=== PATIENT | female | born 1975 | race Caucasian/White ===

== ENCOUNTER 2017-03-22 15:33 | Emergency (ER) | payer SELFPAY ==
[~2017-03-22] VITALS: Ht 165.1 cm; Wt 78.0 kg
[2017-03-22] MEDS ORDERED: LORazepam 2 MG/ML, 1ML ONE ×2 (16:21→18:35)
[2017-03-22] MEDS ORDERED: LORazepam 2 MG/ML, 1ML IVPush ONE ×2 (16:30→19:00)
[2017-03-22] MEDS ORDERED: SODIUM CHLORIDE 0.9% 1,000ML IVBOLUS ONE (16:30)
[2017-03-22] MEDS ORDERED: SODIUM CHLORIDE FLUSH 10ML SYR IVF ONE (16:30)
[2017-03-22 16:55] LABS: BLOOD UREA NITROGEN 2 mg/dL (7-18)
[2017-03-22 17:00] LABS: IS PT STATUS REG ER OR PRE ER? YES
[2017-03-22] MEDS ORDERED: OMNIPAQUE 350 MG/ML, 100ML BOTTLE ONE (17:38)
[2017-03-22 20:11] VITALS: BP 102/72
== END 2017-03-22 21:01 | disposition home or self-care (01) ==
LOC: ED 20:53
DX: R20.2 Paresthesia of skin (principal); F41.1 Generalized anxiety disorder; K21.9 Gastro-esophageal reflux disease without esophagitis; Z88.0 Allergy status to penicillin; F17.210 Nicotine dependence, cigarettes, uncomplicated
CPT/HCPCS: 36415; 71275; 76700; 80048; 82040; 83690; 84484; 85025; 93005; 96361; 96374; 96376; 99285; J2060; J7030; Q9967

== ENCOUNTER 2017-07-29 09:39 | Emergency (ER) | payer SELFPAY ==
[~2017-07-29] VITALS: Ht 167.6 cm; Wt 74.5 kg
[2017-07-29] MEDS ORDERED: SODIUM CHLORIDE 0.9% 1,000ML IVBOLUS ONE ×2 (10:30→13:00)
[2017-07-29] MEDS ORDERED: SODIUM CHLORIDE FLUSH 10ML SYR IVF ONE (10:30)
[2017-07-29 10:33] LABS: HEMOGLOBIN 16.7 g/dL (11.7-16.4); WHITE BLOOD COUNT 5.9 x10^3/uL (3.4-10)
[2017-07-29 11:40] LABS: ASPARTATE AMINO TRANSFERASE 199 U/L (15-37); BLOOD UREA NITROGEN 2 mg/dL (7-18)
[2017-07-29] MEDS ORDERED: CLINDAMYCIN 150 MG CAPSULE PO ONE (13:00)
[2017-07-29 13:34] VITALS: BP 120/86
== END 2017-07-29 14:10 | disposition home or self-care (01) ==
LOC: ED 12:22
DX: K02.9 Dental caries, unspecified (principal); K70.10 Alcoholic hepatitis without ascites; R00.0 Tachycardia, unspecified; F17.200 Nicotine dependence, unspecified, uncomplicated; Z88.0 Allergy status to penicillin
CPT/HCPCS: 36415; 71010; 80053; 81001; 84439; 84443; 85025; 87086; 93005; 96360; 96361; 99285; J7030

== ENCOUNTER 2020-02-01 10:58 | Emergency (ER) | payer MEDICAID ==
[~2020-02-01] VITALS: Ht 165.1 cm; Wt 89.4 kg
[2020-02-01 11:12] VITALS: BP 121/73
[2020-02-01] MEDS ORDERED: CLINDAMYCIN 300 MG CAPSULE PO ONE (11:30)
[2020-02-01] MEDS ORDERED: CLINDAMYCIN 300 MG CAPSULE ONE (11:52)
== END 2020-02-01 12:00 | disposition home or self-care (01) ==
LOC: ED 11:41
DX: K02.9 Dental caries, unspecified (principal); K08.89 Other specified disorders of teeth and supporting structures; K21.9 Gastro-esophageal reflux disease without esophagitis
CPT/HCPCS: 99283